=== PATIENT | female | born 1945 | race Caucasian/White ===

== ENCOUNTER 2022-12-14 12:36 | Inpatient (IN) | payer OTHER ==
[~2022-12-14] VITALS: Ht 167.6 cm; Wt 62.3 kg
[2022-12-14 12:44] VITALS: BP_SYST 101; PULSE 67; RESP 16; TEMP 97.8; O2SAT 97
[2022-12-14] MEDS ORDERED: NACL 0.9% 1,000 ML IV ONE (13:15)
[2022-12-14 13:37] LABS: BASOPHILS % (AUTO) 0.5 % (0.0-2.0); HEMATOCRIT 42.1 % (36-48); HEMOGLOBIN 13.5 g/dL (12.0-16.0); LYMPHOCYTES # (AUTO) 0.7 K/uL (1.0-5.5); LYMPHOCYTES % (AUTO) 9.8 % (20.5-51.5); MEAN CORPUSCULAR HEMOGLOBIN 31 pg (27-31); MEAN CORPUSCULAR HGB CONC 32 % (32-36); MEAN CORPUSCULAR VOLUME 97 fL (79.0-98.0); MONOCYTES # (AUTO) 0.4 K/uL (0.0-1.0); MONOCYTES % (AUTO) 5.6 % (1.7-9.3); NEUTROPHILS % (AUTO) 84.1 % (40.0-70.0); PLATELET COUNT (AUTO) 205 K/uL (130-430); RED BLOOD CELL COUNT(AUTO) 4.34 MIL/uL (4.2-6.2); RED CELL DISTRIBUTION WIDTH 13.6 % (9.0-15.0); WHITE BLOOD COUNT (AUTO) 7.1 K/uL (4.8-10.8)
[2022-12-14 14:07] LABS: ALANINE AMINOTRANSFERASE 6 U/L (12-78); ALBUMIN 3.7 g/dL (3.4-4.8); ANION GAP 6 (5-15); ASPARTATE AMINOTRANSFERASE 12 U/L (10-37); CALCIUM 10.1 mg/dL (8.4-11.0); CHLORIDE 105 mmol/L (98-107); CREATININE 0.72 mg/dL (0.55-1.30); GLUCOSE 101 mg/dL (74-106); TOTAL BILIRUBIN 0.3 mg/dL (0.0-1.0); UREA NITROGEN, BLOOD 15 mg/dL (8-21)
[2022-12-14 14:10] LABS: ACETAMINOPHEN < 1 ug/mL (1-30); ALCOHOL, BLOOD < 3 mg/dL (<10)
[2022-12-14 14:19] LABS: BILIRUBIN,URINE NEGATIVE (NEGATIVE); BLOOD, URINE NEGATIVE (NEGATIVE); CLARITY/URINE CLEAR (CLEAR); COLOR,URINE YELLOW (YELLOW); GLUCOSE,URINE NEGATIVE (NEGATIVE); KETONES,URINE NEGATIVE (NEGATIVE); LEUKOCYTE ESTERASE ,URINE TRACE (NEGATIVE); NITRITE, URINE NEGATIVE (NEGATIVE); PROTEIN URINE NEGATIVE (NEGATIVE); UROBILINOGEN,URINE 0.2 (0.2-1.0)
[2022-12-14 14:30] LABS: BACTERIA,URINE RARE /HPF (None Seen); MUCUS,URINE 1+ /LPF (None Seen); RBC,URINE 0-3 /HPF (0-3); WBC,URINE 0-3 /HPF (0-3)
[2022-12-14] MEDS ORDERED: ESCI-6 PO (17:25)
[2022-12-14] MEDS ORDERED: SIMV-46 PO (17:25)
[2022-12-14] MEDS ORDERED: MIRA50TA PO (17:25)
[2022-12-14] MEDS ORDERED: OLAN10TA71 PO (17:25)
[2022-12-14] MEDS ORDERED: LAMO150T6 PO (17:25)
[2022-12-14] MEDS ORDERED: LEVO25TA7 PO (17:26)
[2022-12-14] MEDS ORDERED: LITH300C2 PO (17:26)
[2022-12-14 18:43] VITALS: BP_SYST 93; PULSE 63; RESP 16; TEMP 97.2; O2SAT 96
[2022-12-14 19:45] VITALS: BP_SYST 132; PULSE 65; RESP 18; TEMP 98.2; O2SAT 96
[2022-12-14 20:00] VITALS: BP_SYST 141; PULSE 66; RESP 18; TEMP 98; O2SAT 97
[2022-12-15 00:40] VITALS: BP_SYST 96; PULSE 60; RESP 17; TEMP 97.4; O2SAT 96
[2022-12-15 10:57] VITALS: BP_SYST 108; PULSE 55; RESP 18; TEMP 96.9; O2SAT 95
[2022-12-15 11:26] VITALS: O2SAT 95
[2022-12-15 11:30] VITALS: BP_SYST 110; PULSE 62; RESP 17; TEMP 98.4; O2SAT 96
[2022-12-15] MEDS ORDERED: ESCITALOPRAM OXALATE 10 MG TABLET PO SCH (15:15)
[2022-12-15] MEDS ORDERED: CITALOPRAM HYDROBROMIDE 20 MG TABLET PO ONE (15:30)
[2022-12-15 17:30] VITALS: BP_SYST 113; PULSE 55; RESP 18; TEMP 97.9; O2SAT 97
[2022-12-15 20:00] VITALS: BP_SYST 114; PULSE 60; RESP 18; TEMP 97; O2SAT 96
[2022-12-15] MEDS: PROPRANOLOL HCL 10 MG TABLET (INDERAL) PO SCH (20:41)
[2022-12-15] MEDS: LITHIUM CARBONATE 300 MG TABLET.SA PO SCH (20:41)
[2022-12-15] MEDS ORDERED: SIMVASTATIN 40 MG TABLET PO SCH (21:00)
[2022-12-15] MEDS ORDERED: OLANZapine 10 MG TABLET PO SCH (21:00)
[2022-12-16 00:35] VITALS: BP_SYST 92; PULSE 59; RESP 15; TEMP 96.3; O2SAT 97
[2022-12-16] MEDS ORDERED: LEVOTHYROXINE SODIUM 0.025 MG TABLET PO SCH (07:00)
[2022-12-16 07:46] VITALS: BP_SYST 121; PULSE 46; RESP 16; TEMP 96.5; O2SAT 97
[2022-12-16] MEDS ORDERED: CITALOPRAM HYDROBROMIDE 20 MG TABLET PO SCH (09:00)
[2022-12-16] MEDS: PROPRANOLOL HCL 10 MG TABLET (INDERAL) PO SCH ×2 (09:00→13:54)
[2022-12-16 12:00] VITALS: BP_SYST 97; PULSE 50; RESP 18; TEMP 97.4; O2SAT 97
[2022-12-16 13:09] VITALS: BP_SYST 97; PULSE 50; RESP 18; TEMP 97.4; O2SAT 97
[2022-12-16] MEDS: LITHIUM CARBONATE 300 MG TABLET.SA PO SCH (13:53)
== END 2022-12-16 13:15 | disposition home health service (06) | DRG 948 ==
LOC: SED 12:36 → SMU 17:19
PROVIDERS: ADMIT Specialist; ATTEND Specialist
DX: R53.1 Weakness (principal); F31.9 Bipolar disorder, unspecified; F03.90 Unspecified dementia, unspecified severity, without behavioral disturbance, psychotic disturbance, mood disturbance, and anxiety; Z20.822 Contact with and (suspected) exposure to COVID-19; R26.81 Unsteadiness on feet; T50.995A Adverse effect of other drugs, medicaments and biological substances, initial encounter; T43.595A Adverse effect of other antipsychotics and neuroleptics, initial encounter; Y92.89 Other specified places as the place of occurrence of the external cause; Z88.2 Allergy status to sulfonamides; Z79.899 Other long term (current) drug therapy
CPT/HCPCS: 36415; 36600; 70450-TC; 70551; 71045; 76376; 80053; 80178; 81000; 82140; 82803; 83605; 83880; 84484; 85025; 87040; 87086; 93005; 93306; 96360; 97110-GP; 97116-GP; 97163-GP; 97530-GP; 99285; G0480; G0481; G0482